=== PATIENT | male | born 1950 | race Native Hawaiian/Other Pacific Islander ===

== ENCOUNTER 2018-09-25 12:57 | Outpatient (CLI) | payer BC | END 2018-09-25 13:12 | disposition short-term general hospital (02) | LOC: AMB 12:57 | DX: R55 Syncope and collapse (principal); S01.91XA Laceration without foreign body of unspecified part of head, initial encounter; W18.39XA Other fall on same level, initial encounter; Y93.89 Activity, other specified; Y92.89 Other specified places as the place of occurrence of the external cause | CPT/HCPCS: A0425; A0427 ==

== ENCOUNTER 2018-10-01 12:03 | Emergency (ER) | payer BC | END 2018-10-01 12:31 | disposition home or self-care (01) | LOC: ED 12:03 | DX: Z48.02 Encounter for removal of sutures (principal) ==